=== PATIENT | female | born 1950 | race Two or more races ===

== ENCOUNTER 2016-07-02 11:18 | Emergency (ER) | payer MEDICARE, OTHER ==
[~2016-07-02] VITALS: Ht 157.5 cm; Wt 93.0 kg
[2016-07-02] MEDS ORDERED: ACETAMINOPHEN ES 500 MG TABLET ONE (11:51)
[2016-07-02] MEDS ORDERED: ACETAMINOPHEN ES 500 MG TABLET PO ONE (12:00)
[2016-07-02 12:12] LABS: ANION GAP 13 (5-14); CALCIUM, SERUM 8.9 mg/dL (8.5-10.1); CARBON DIOXIDE 27 mmol/L (21-32); CHLORIDE 104 mmol/L (98-107); CREATININE 0.6 mg/dL (0.6-1.3); GFR 100 mL/min (>60); GLUCOSE 101 mg/dL (74-106); POTASSIUM 4.5 mmol/L (3.5-5.1); SODIUM SERUM 140 mmol/L (136-145); UREA NITROGEN, BLOOD 21 mg/dL (7-18)
[2016-07-02 12:15] LABS: INR 0.93 (0.87-1.13); PROTHROMBIN TIME 9.8 SECS (9.5-12.7)
[2016-07-02 12:34] LABS: TROPONIN I < 0.017 ng/mL (0.00-0.056)
[2016-07-02 12:56] VITALS: BP 159/96
[2016-07-02 13:09] LABS: DIFF TOTAL % 100 %
[2016-07-02 13:13] LABS: HEMATOCRIT 33 % (33-45); HEMOGLOBIN 11.4 g/dL (11.5-14.8); MEAN CORPUSCULAR HEMOGLOBIN 30 PG (26.0-33.0); MEAN CORPUSCULAR HGB CONC 34 g/dl (31.0-36.0); MEAN CORPUSCULAR VOLUME 87 fL (82-100); NEUTROPHILS % (AUTO) 57.5 % (43.0-81.0); PLATELET COUNT (AUTO) 246 /CMM (150-450); RED BLOOD CELL COUNT(AUTO) 3.83 MIL/uL (4.0-5.2)
[2016-07-02 13:14] LABS: BASOPHILS % (AUTO) 0.7 % (0.0-2.0); EOSINOPHILS # (AUTO) 0.1 /CMM (0.0-0.7); EOSINOPHILS % (AUTO) 1.8 % (0.0-6.0); LYMPHOCYTES # (AUTO) 1.7 /CMM (0.8-4.8); LYMPHOCYTES % (AUTO) 33.2 % (20.0-44.0); MONOCYTES # (AUTO) 0.3 /CMM (0.1-1.30); MONOCYTES % (AUTO) 6.8 % (2.0-12.0); NEUTROPHILS # (AUTO) 2.9 /CMM (1.8-8.9)
== END 2016-07-02 12:56 | disposition home or self-care (01) ==
LOC: ER 11:20
DX: M54.5 Low back pain (principal); M25.512 Pain in left shoulder; I10 Essential (primary) hypertension; Z98.890 Other specified postprocedural states; W18.30XA Fall on same level, unspecified, initial encounter; Y93.89 Activity, other specified; Y92.89 Other specified places as the place of occurrence of the external cause; Y99.8 Other external cause status; R51 Headache; R79.1 Abnormal coagulation profile
CPT/HCPCS: 36415; 70450; 71010; 72110; 73030; 80048; 84484; 85025; 85730; 99285; A4606; Z7610

== ENCOUNTER 2016-10-21 13:40 | Emergency (ER) | payer MEDICARE, OTHER ==
--- NOTE | 2016-10-21 13:40 | NUR ---
PER PATIENT DID NOT WISH TO BE SEEN ANYMORE. PT APPEARS STABLE, LEAVING WITH FAMILY MEMBERS.
== END 2016-10-21 14:13 | disposition left against medical advice (07) ==
LOC: ER 13:59
DX: Z53.21 Procedure and treatment not carried out due to patient leaving prior to being seen by health care provider (principal)

== ENCOUNTER 2018-11-17 16:19 | Emergency (ER) | payer MEDICARE, OTHER ==
[~2018-11-17] VITALS: Ht 165.1 cm; Wt 89.8 kg
--- NOTE | 2018-11-17 17:24 | NUR ---
PT PRESENTED TO THE ER WITH A C/O COUGH W/CONGESTION. PT AMBULATED IN WITH A STEADY GAIT. PT'S DAUGHTER STATED THAT THE PT JUST FINISHED A ZPACK YESTERDAY AND HAS HX OF CHF AND PNA. PT WAS APPARENTLY WALKING AROUND THE MALL AND STATED THAT SHE HAD DIFFICULTY BREATHING. PT HAS RT SIDED WHEEZES AND COARSENESS NOTED. LT SIDE SOUNDS TIGHT, SLIGHT AIR MOVEMENT NOTED. PT STATED THAT IT WAS BETTER AFTER SHE COUGHED. YELLOW/GREEN SPUTUM NOTED. RESP ARE EVEN AND SLIGHTLY LABORED. O2 SAT IS 95% ON RA. MED LIST OBTAINED AND IS IN THE CHART.
--- NOTE | 2018-11-17 17:33 | NUR ---
PT WAS PLACED ON 2L O2 VIA NC. PT'S O2 SAT ON RA WENT DOWN TO 91%. PT STAYED AT 93% UNTIL SHE COUGHED. NOW PT IS 98% ON 2L OF O2.
--- NOTE | 2018-11-17 17:44 | NUR ---
CXR IN PROGRESS AT THE BEDSIDE.
[2018-11-17 17:56] LABS: BASOPHILS % (AUTO) 0.5 % (0.0-2.0); EOSINOPHILS % (AUTO) 1.6 % (0.0-6.0); HEMATOCRIT 36 % (33-45); HEMOGLOBIN 12.4 g/dL (11.5-14.8); LYMPHOCYTES # (AUTO) 1.4 /CMM (0.8-4.8); LYMPHOCYTES % (AUTO) 26.5 % (20.0-44.0); MEAN CORPUSCULAR HGB CONC 34 g/dl (31.0-36.0); MEAN CORPUSCULAR VOLUME 89 fL (82-100); MONOCYTES # (AUTO) 0.4 /CMM (0.1-1.30); MONOCYTES % (AUTO) 6.7 % (2.0-12.0); NEUTROPHILS # (AUTO) 3.4 /CMM (1.8-8.9); NEUTROPHILS % (AUTO) 64.7 % (43.0-81.0); PLATELET COUNT (AUTO) 217 /CMM (150-450); RED BLOOD CELL COUNT(AUTO) 4.07 MIL/uL (4.0-5.2); WHITE BLOOD COUNT (AUTO) 5.2 K/uL (4.3-11.0)
--- NOTE | 2018-11-17 18:01 | NUR ---
EKG IN PROGRESS AT THE BEDSIDE.
[2018-11-17 18:33] LABS: CALCIUM, SERUM 8.9 mg/dL (8.5-10.1); CREATININE 0.6 mg/dL (0.6-1.3); POTASSIUM 4.1 mmol/L (3.5-5.1)
--- NOTE | 2018-11-17 19:16 | NUR ---
Patient discharged to home in stable condition. Written and verbal after care instructions given. Patient verbalizes understanding of instruction AND RX. PT REC'D A NEB MASK FOR NEB RX. PT STATED THAT HER GRANDCHILDREN HAVE A NEB MACHINE AT HOME. PT STATED THAT SHE CAN USE THAT MACHINE. PT AMBULATED OUT WITH A STEADY GAIT. VSS. RESP EVEN AND UNLABORED.
[2018-11-17 19:18] VITALS: BP 128/71
== END 2018-11-17 19:18 | disposition home or self-care (01) ==
LOC: ER 16:19
DX: J06.9 Acute upper respiratory infection, unspecified (principal); I10 Essential (primary) hypertension; Z98.890 Other specified postprocedural states
CPT/HCPCS: 36415; 71045-TC; 80048-TC; 83880; 85025-TC

== ENCOUNTER 2019-03-25 16:01 | Emergency (ER) | payer MEDICARE, OTHER ==
[~2019-03-25] VITALS: Ht 165.1 cm; Wt 91.2 kg
--- NOTE | 2019-03-25 16:29 | NUR ---
"C/O FEELING SICK X 1 WEEK ASSOCIATED WITH PROGRESSIVE SOB" PT AAOX4, -SOB, NAD NOTED, VSS PENDING MD JENSEN
[2019-03-25 16:52] LABS: BASOPHILS % (AUTO) 0.5 % (0.0-2.0); EOSINOPHILS % (AUTO) 1.5 % (0.0-6.0); HEMATOCRIT 33 % (33-45); HEMOGLOBIN 11.5 g/dL (11.5-14.8); LYMPHOCYTES # (AUTO) 0.8 /CMM (0.8-4.8); LYMPHOCYTES % (AUTO) 12.9 % (20.0-44.0); MEAN CORPUSCULAR HGB CONC 35 g/dl (31.0-36.0); MEAN CORPUSCULAR VOLUME 89 fL (82-100); MONOCYTES # (AUTO) 0.5 /CMM (0.1-1.30); MONOCYTES % (AUTO) 7.9 % (2.0-12.0); NEUTROPHILS % (AUTO) 77.2 % (43.0-81.0); PLATELET COUNT (AUTO) 197 /CMM (150-450); RED BLOOD CELL COUNT(AUTO) 3.72 MIL/uL (4.0-5.2); WHITE BLOOD COUNT (AUTO) 6.5 K/uL (4.3-11.0)
[2019-03-25] MEDS ORDERED: ALBUTEROL FS 2.5 MG/3 ML VIAL.NEB ONE (16:53)
[2019-03-25] MEDS ORDERED: IPRATROPIUM NEB FS 0.5 MG/2.5 ML AMPUL.NEB ONE (16:53)
[2019-03-25 17:00] LABS: CALCIUM, SERUM 8.8 mg/dL (8.5-10.1); CARBON DIOXIDE 28 mmol/L (21-32); CHLORIDE 102 mmol/L (98-107); CREATININE 1.1 mg/dL (0.6-1.3); GLUCOSE 132 mg/dL (74-106); POTASSIUM 3.1 mmol/L (3.5-5.1); SODIUM SERUM 139 mmol/L (136-145); UREA NITROGEN, BLOOD 22 mg/dL (7-18)
[2019-03-25] MEDS ORDERED: ALBUTEROL FS 2.5 MG/3 ML VIAL.NEB NEB ONE (17:00)
[2019-03-25] MEDS ORDERED: IPRATROPIUM NEB FS 0.5 MG/2.5 ML AMPUL.NEB NEB ONE (17:00)
[2019-03-25 17:30] VITALS: BP 130/55
[2019-03-25] MEDS ORDERED: BENZONATATE 100 MG CAPSULE PO PRN (17:30)
--- NOTE | 2019-03-25 17:48 | NUR ---
Patient discharged to home in stable condition. Written and verbal after care instructions given. Patient verbalizes understanding of instruction. IV removed. Catheter intact and site benign. Pressure and 4x4 applied to site. No bleeding noted.
== END 2019-03-25 17:49 | disposition home or self-care (01) ==
LOC: ER 16:01
DX: J18.9 Pneumonia, unspecified organism (principal); I10 Essential (primary) hypertension; E78.00 Pure hypercholesterolemia, unspecified; Z98.890 Other specified postprocedural states
CPT/HCPCS: 36415; 71045-TC; 80048-TC; 83880; 84484-TC; 85025-TC

== ENCOUNTER 2019-08-30 13:06 | Emergency (ER) | payer MEDICARE, OTHER ==
[~2019-08-30] VITALS: Ht 167.6 cm; Wt 83.9 kg
[2019-08-30 13:09] VITALS: BP 111/61
[2019-08-30] MEDS ORDERED: KETOROLAC TROMETHAMINE INJ 30 MG/ML VIAL ONE (13:17)
--- NOTE | 2019-08-30 13:20 | NUR ---
Patient discharged to home in stable condition. Written and verbal after care instructions given. Patient verbalizes understanding of instruction.
[2019-08-30] MEDS ORDERED: KETOROLAC TROMETHAMINE INJ 60 MG/2 ML VIAL IM ONE (13:30)
== END 2019-08-30 13:21 | disposition home or self-care (01) ==
LOC: ER 13:10
DX: H66.92 Otitis media, unspecified, left ear (principal); I10 Essential (primary) hypertension; Z98.890 Other specified postprocedural states
CPT/HCPCS: 96372; 99283; J1885

== ENCOUNTER 2019-12-14 14:02 | Emergency (ER) | payer MEDICARE, OTHER ==
[~2019-12-14] VITALS: Ht 165.1 cm; Wt 88.5 kg
[2019-12-14] MEDS ORDERED: IV NS 0.9% 1,000 ML BAG IV ONE (14:30)
--- NOTE | 2019-12-14 14:35 | NUR ---
BIBS FROM HOME TO ER BED 7. AAOX4. NOT IN RESP DISTRESS. AMBULATORY. CAME IN FOR DIZZYNESS, WEAKNESS AEB DIFFICULTY WALKING AND ABNORMAL LABS - LOW WBC. PER PT, SHE HAS BEEN FEELING WEAK GARTH AND DIZZY FOR A MONTH ALREADY. PT REPORTED THAT THE ROOM WAS SPINNING WHEN SHE SAT UP DURING ASSESSMENT. MD WAS AT THE BEDSIDE FOR EVAL. ORDERS RECEIVED, NOTED AND CARRIED OUT. IV LINE OBTAINED ON L HAND 20G. BLOOD DRAWN AND SENT TO LAB. EKG DONE AT BEDSIDE BY EMT
[2019-12-14] MEDS ORDERED: MECLIZINE HCL 25 MG TABLET ONE (14:49)
[2019-12-14 14:53] LABS: BASOPHILS % (AUTO) 0.8 % (0.0-2.0); EOSINOPHILS % (AUTO) 1.3 % (0.0-6.0); HEMATOCRIT 35 % (33-45); HEMOGLOBIN 11.9 g/dL (11.5-14.8); LYMPHOCYTES # (AUTO) 1.2 /CMM (0.8-4.8); LYMPHOCYTES % (AUTO) 24.1 % (20.0-44.0); MEAN CORPUSCULAR HGB CONC 34 g/dl (31.0-36.0); MEAN CORPUSCULAR VOLUME 91 fL (82-100); MONOCYTES # (AUTO) 0.4 /CMM (0.1-1.30); MONOCYTES % (AUTO) 8.7 % (2.0-12.0); NEUTROPHILS # (AUTO) 3.2 /CMM (1.8-8.9); NEUTROPHILS % (AUTO) 65.1 % (43.0-81.0); PLATELET COUNT (AUTO) 199 /CMM (150-450); RED BLOOD CELL COUNT(AUTO) 3.84 MIL/uL (4.0-5.2); WHITE BLOOD COUNT (AUTO) 4.9 K/uL (4.3-11.0)
[2019-12-14] MEDS ORDERED: MECLIZINE HCL 25 MG TABLET PO ONE (15:00)
[2019-12-14 15:01] LABS: CARBON DIOXIDE 31 mmol/L (21-32); CHLORIDE 104 mmol/L (98-107); CREATININE 0.7 mg/dL (0.6-1.3); GLUCOSE 99 mg/dL (74-106); POTASSIUM 3.6 mmol/L (3.5-5.1); SODIUM SERUM 141 mmol/L (136-145); UREA NITROGEN, BLOOD 22 mg/dL (7-18)
[2019-12-14 15:07] LABS: ALANINE AMINOTRANSFERASE 22 U/L (12-78); ALBUMIN 3.3 g/dL (3.4-5.0); ALKALINE PHOSPHATASE 51 U/L (46-116); ASPARTATE AMINOTRANSFERASE 17 U/L (15-37); BILIRUBIN,DIRECT 0.1 mg/dL (0.0-0.2); BILIRUBIN,TOTAL 0.2 mg/dL (0.2-1.0); TOTAL PROTEIN, SERUM 6.9 g/dL (6.4-8.2)
[2019-12-14 16:13] LABS: THYROID STIMULATING HORMONE 0.877 uIU/mL (0.358-3.74)
--- NOTE | 2019-12-14 17:33 | NUR ---
Patient discharged to home in stable condition. Written and verbal after care instructions given. Patient verbalizes understanding of instruction.IV removed. Catheter intact and site benign. Pressure and 4x4 applied to site. No bleeding noted. Pt ambulatory with a steady gait
[2019-12-14 17:34] VITALS: BP 139/86
== END 2019-12-14 17:34 | disposition home or self-care (01) ==
LOC: ER 14:04
DX: R42 Dizziness and giddiness (principal); I10 Essential (primary) hypertension; Z98.890 Other specified postprocedural states
CPT/HCPCS: 36415; 70450; 71045; 80048; 80076; 83735; 84439; 84443; 84484; 85025; 93005; 96360; 99285; J7030; J8597

== ENCOUNTER 2020-10-31 13:30 | Emergency (ER) | payer MEDICARE, OTHER ==
[~2020-10-31] VITALS: Ht 162.6 cm; Wt 90.7 kg
--- NOTE | 2020-10-31 13:30 | NUR ---
PT FROM HOME, C/O LEFT SIDED BODY, BACK AND LEFT KNEE PAIN S/P FALL -KO. PT IS AAOX4, NOT IN RESPIRATORY DISTRESS, V/S STABLE, KEPT RESTED AND COMFORTABLE. WILL CONTINUE TO MONITOR.
--- NOTE | 2020-10-31 13:40 | NUR ---
AT BEDSIDE FOR EVAL.
--- NOTE | 2020-10-31 14:20 | NUR ---
CLEANING AND MAINTENANCE WORKER AT BEDSIDE FOR XRAY.
--- NOTE | 2020-10-31 14:41 | NUR ---
PT IS BACK FROM THE CT SCAN.
[2020-10-31] MEDS ORDERED: ONDANSETRON 4 MG TAB.RAPDIS SL ONE (15:00)
[2020-10-31] MEDS ORDERED: HYDROCODONE/APAP 5/325MG TABLET PO ONE (15:00)
[2020-10-31] MEDS ORDERED: ONDANSETRON 4 MG TAB.RAPDIS ONE (15:20)
[2020-10-31] MEDS ORDERED: HYDROCODONE/APAP 5/325MG TABLET ONE (15:20)
[2020-10-31] MEDS ORDERED: DICL50TA7 PO (15:23)
[2020-10-31 15:25] VITALS: BP 123/73
--- NOTE | 2020-10-31 15:25 | NUR ---
Patient discharged to home in stable condition. Written and verbal after care instructions given. Patient verbalizes understanding of instruction.
== END 2020-10-31 15:31 | disposition home or self-care (01) ==
LOC: ER 13:35
DX: S22.32XA Fracture of one rib, left side, initial encounter for closed fracture (principal); I10 Essential (primary) hypertension; I25.10 Atherosclerotic heart disease of native coronary artery without angina pectoris; E78.5 Hyperlipidemia, unspecified; F17.200 Nicotine dependence, unspecified, uncomplicated; Z98.890 Other specified postprocedural states; W19.XXXA Unspecified fall, initial encounter; Y93.89 Activity, other specified; Y92.89 Other specified places as the place of occurrence of the external cause; Y99.8 Other external cause status
CPT/HCPCS: 70450; 71100; 99284; Q0162